=== PATIENT | female | born 1995 | race Hispanic/Latino ===

== ENCOUNTER 2017-11-25 00:56 | Observation (INO) | payer MEDICAID ==
[~2017-11-25] VITALS: Ht 154.9 cm; Wt 53.1 kg
[~2017-11-25 00:56] MED LIST: IBUP-2070 PO; IRON-10 PO
[2017-11-25 01:13] VITALS: BP 107/67
[2017-11-25 01:31] LABS: APPEARANCE,URINE Clear (CLEAR); BILIRUBIN,URINE Negative (NEGATIVE); COLOR,URINE Yellow (YELLOW); GLUCOSE, URINE (UA) Negative (NEGATIVE); KETONES,URINE Trace mg/dL (NEGATIVE); LEUKOCYTE ESTERASE ,URINE Trace (NEGATIVE); NITRATE,URINE Negative (NEGATIVE); OCCULT BLOOD,URINE Negative (NEGATIVE); PH,URINE 7.5 (5.0-8.0); PROTEIN,URINE Negative (NEGATIVE); UROBILINOGEN,URINE 0.2 mg/dL (0.2-1.0)
[2017-11-25 01:44] LABS: BACTERIA,URINE None Seen /HPF (None Seen); RBC,URINE 0-1 /HPF (0-1); WBC,URINE 0-1 /HPF (0-1)
[2017-11-25 01:45] LABS: MUCUS,URINE Few LPF (None Seen); SQUAMOUS EPITHELIAL CELL,UR Few /HPF (0-2)
[2017-11-25] MEDS ORDERED: ALBU0.63 IH (02:17)
[2017-11-25] MEDS ORDERED: PNV11TAB5 PO (02:17)
[2017-11-25] MEDS: LACTATED RINGERS 1000ML IV PRN ×2 (02:21→03:26)
[2017-11-25] MEDS ORDERED: GUAIFENESIN-DM 200/20 MG 10 ML PO PRN (02:45)
[2017-11-25] MEDS ORDERED: ACETAMINOPHEN 325 MG TAB PO PRN (02:45)
== END 2017-11-25 05:15 | disposition home or self-care (01) ==
LOC: EDH 00:56 → LDH 01:13
PROVIDERS: ADMIT Obstetrics & Gynecology; ATTEND Obstetrics & Gynecology
DX: O26.893 Other specified pregnancy related conditions, third trimester (principal); R10.30 Lower abdominal pain, unspecified; R05 Cough; R51 Headache; Z3A.28 28 weeks gestation of pregnancy
CPT/HCPCS: 81001; 87804 ×2; 96360; 96361; 99285; G0378 ×4; J7120

== ENCOUNTER 2018-01-16 16:02 | Observation (INO) | payer MEDICAID ==
[~2018-01-16] VITALS: Ht 154.9 cm; Wt 53.5 kg
[~2018-01-16 16:02] MED LIST changes: +ALBU0.63 IH; +PNV11TAB5 PO
[2018-01-16 16:45] VITALS: BP 110/81
[2018-01-16 17:34] LABS: HEMATOCRIT 25.8 % (36-48); MEAN CORPUSCULAR HEMOGLOBIN 17.9 pg (27.0-33.0); MEAN CORPUSCULAR HGB CONC 31.2 g/dL (32.0-36.0); MEAN CORPUSCULAR VOLUME 57.3 fL (79-99); NUCLEATED RED BLOOD CELLS 0.1 % (0.0-0.19); PLATELET COUNT (AUTO) 242 K/uL (130-400); RED BLOOD CELL COUNT(AUTO) 4.51 MIL/uL (4.00-5.50); RED CELL DISTRIBUTION WIDTH 17.4 % (11.0-15.5)
[2018-01-16] MEDS ORDERED: PNV1TAB.4 PO (18:25)
[2018-01-16 19:45] VITALS: BP 99/57
[2018-01-16 23:59] VITALS: BP 103/67
[2018-01-17 03:30] VITALS: BP 104/57
[2018-01-17 05:41] LABS: HEMATOCRIT 30.7 % (36-48)
[2018-01-17 07:28] VITALS: BP 112/71
[2018-01-17] MEDS ORDERED: DIPH,PERTUSS(ACELL),TET VAC/PF 0.5 ML VIAL IM SCH (09:45)
== END 2018-01-17 11:20 | disposition home or self-care (01) ==
LOC: WSH 16:02
PROVIDERS: ADMIT Obstetrics & Gynecology; ATTEND Obstetrics & Gynecology
DX: O99.013 Anemia complicating pregnancy, third trimester (principal); O26.893 Other specified pregnancy related conditions, third trimester; R10.84 Generalized abdominal pain; O09.893 Supervision of other high risk pregnancies, third trimester; O36.5930 Maternal care for other known or suspected poor fetal growth, third trimester, not applicable or unspecified; Z3A.35 35 weeks gestation of pregnancy; Z23 Encounter for immunization
CPT/HCPCS: 36415 ×2; 36430; 85014; 85018; 85027; 86850; 86900; 86901; 86922; 90471; 90715; G0378 ×20; P9016 ×2

== ENCOUNTER 2018-02-03 17:27 | Observation (INO) | payer MEDICAID ==
[~2018-02-03] VITALS: Ht 157.5 cm; Wt 55.3 kg
[~2018-02-03 17:27] MED LIST changes: +PNV1TAB.4 PO
[2018-02-03 17:58] LABS: APPEARANCE,URINE Clear (CLEAR); BILIRUBIN,URINE Negative (NEGATIVE); COLOR,URINE Yellow (YELLOW); GLUCOSE, URINE (UA) Negative (NEGATIVE); KETONES,URINE Negative (NEGATIVE); LEUKOCYTE ESTERASE ,URINE Moderate (NEGATIVE); NITRATE,URINE Negative (NEGATIVE); OCCULT BLOOD,URINE Negative (NEGATIVE); PH,URINE 6.5 (5.0-8.0); PROTEIN,URINE Negative (NEGATIVE); UROBILINOGEN,URINE 0.2 mg/dL (0.2-1.0)
[2018-02-03 18:20] LABS: BACTERIA,URINE Few /HPF (None Seen); RBC,URINE 0-1 /HPF (0-1); SQUAMOUS EPITHELIAL CELL,UR Few /HPF (0-2)
[2018-02-03] MEDS ORDERED: LACTATED RINGERS 1000ML 1,000 ML IV PRN (18:26)
[2018-02-03] MEDS ORDERED: CEFTRIAXONE 1GM/D5W 50ML 50 ML IV SCH (18:30)
[2018-02-03] MEDS ORDERED: LACTATED RINGERS 1000ML 1,000 ML IV ONE (18:39)
[2018-02-03 18:41] LABS: HEMATOCRIT 32.6 % (36-48); MEAN CORPUSCULAR HEMOGLOBIN 22.5 pg (27.0-33.0); MEAN CORPUSCULAR HGB CONC 33.1 g/dL (32.0-36.0); PLATELET COUNT (AUTO) 177 K/uL (130-400); RED CELL DISTRIBUTION WIDTH 32.9 % (11.0-15.5); WHITE BLOOD COUNT (AUTO) 7.1 K/uL (4.8-10.8)
[2018-02-03] MEDS ORDERED: CEFTRIAXONE SODIUM 1 GM IVP SCH (20:00)
[2018-02-05 06:16] LABS: HEPATITIS Bs ANTIGEN SCREEN P Negative (Negative)
== END 2018-02-04 08:13 | disposition home or self-care (01) ==
LOC: OBSVTOIN 17:27 → INTOOBSV 17:27 → LDH 17:27
PROVIDERS: ADMIT Obstetrics & Gynecology; ATTEND Obstetrics & Gynecology
DX: O62.9 Abnormality of forces of labor, unspecified (principal); Z3A.38 38 weeks gestation of pregnancy
CPT/HCPCS: 36415; 76815; 81001; 85027; 86592; 86850; 86900; 86901; 87340; 96360; 96361; A4218; G0378 ×16; J0696 ×2; J7120

== ENCOUNTER 2018-02-07 08:43 | Inpatient (IN) | payer MEDICAID ==
[2018-02-07] MEDS ORDERED: LACTATED RINGERS 1000ML 1,000 ML IV PRN (09:33)
[2018-02-07] MEDS ORDERED: OXYTOCIN-LR 20 UNITS/1000 ML 1,000 ML IV SCH ×2 (09:45→11:15)
[2018-02-07] MEDS ORDERED: OXYTOCIN 10 USP UNITS/ML 20 UNIT in LACTATED RINGERS 1000ML 1,000 ML IV SCH (09:45)
[2018-02-07 09:53] LABS: HEMATOCRIT 33.5 % (36-48); MEAN CORPUSCULAR HGB CONC 33.2 g/dL (32.0-36.0); MEAN CORPUSCULAR VOLUME 69.3 fL (79-99); PLATELET COUNT (AUTO) 178 K/uL (130-400); RED BLOOD CELL COUNT(AUTO) 4.83 MIL/uL (4.00-5.50); RED CELL DISTRIBUTION WIDTH 33.4 % (11.0-15.5)
[2018-02-07] MEDS ORDERED: OXYTOCIN 10 USP UNITS/ML ONE (10:05)
[2018-02-07] MEDS ORDERED: ACETAMINOPHEN 325 MG TAB PO PRN (11:15)
[2018-02-07] MEDS ORDERED: MEASLES/MUMPS/RUBELLA VACCINE, LIVE 0.5 ML/VIAL SQ PRN (11:15)
[2018-02-07] MEDS ORDERED: DIPH,PERTUSS(ACELL),TET VAC/PF 0.5 ML VIAL IM PRN (11:15)
[2018-02-07 12:44] VITALS: BP 115/76
[2018-02-07] MEDS: IBUPROFEN 600 MG TABLET PO PRN ×2 (13:13→20:22)
[2018-02-07 15:20] VITALS: BP 120/75
[2018-02-07 19:50] VITALS: BP 99/63
[2018-02-07] MEDS: DOCUSATE SODIUM 100 MG CAP PO SCH (20:21)
[2018-02-07] MEDS ORDERED: BENZOCAINE/LANOLIN/ALOE VERA 60 ML AEROSOL TP PRN (21:45)
[2018-02-07 23:47] VITALS: BP 111/77
[2018-02-08 03:49] VITALS: BP 107/68
[2018-02-08 06:16] LABS: HEPATITIS Bs ANTIGEN SCREEN P Negative (Negative)
[2018-02-08] MEDS: IBUPROFEN 600 MG TABLET PO PRN (06:31)
[2018-02-08 06:52] LABS: HEMATOCRIT 34.8 % (36-48); MEAN CORPUSCULAR HEMOGLOBIN 22.5 pg (27.0-33.0); MEAN CORPUSCULAR HGB CONC 32.2 g/dL (32.0-36.0); MEAN CORPUSCULAR VOLUME 69.6 fL (79-99); PLATELET COUNT (AUTO) 230 K/uL (130-400); RED BLOOD CELL COUNT(AUTO) 4.99 MIL/uL (4.00-5.50); WHITE BLOOD COUNT (AUTO) 11.2 K/uL (4.8-10.8)
[2018-02-08 07:19] VITALS: BP 120/78
[2018-02-08] MEDS: DOCUSATE SODIUM 100 MG CAP PO SCH (08:11)
[2018-02-08 11:16] VITALS: BP 108/69
== END 2018-02-08 12:40 | disposition home or self-care (01) | DRG 560 ==
LOC: LDH 08:43 → OBSVTOIN 08:43 → WSH 12:40
PROVIDERS: ADMIT Obstetrics & Gynecology; ATTEND Obstetrics & Gynecology
PROC: 10E0XZZ Delivery of Products of Conception, External Approach (ICD-10-PCS; principal; 2018-02-07)
PROC: 0HQ9XZZ Repair Perineum Skin, External Approach (ICD-10-PCS; 2018-02-07)
PROC: 3E0234Z Introduction of Serum, Toxoid and Vaccine into Muscle, Percutaneous Approach (ICD-10-PCS; 2018-02-07)
PROC: 3E0134Z Introduction of Serum, Toxoid and Vaccine into Subcutaneous Tissue, Percutaneous Approach (ICD-10-PCS; 2018-02-07)
DX: O70.0 First degree perineal laceration during delivery (principal); Z23 Encounter for immunization; Z37.0 Single live birth; Z3A.39 39 weeks gestation of pregnancy
CPT/HCPCS: 36415; 76815; 81001; 85027; 86592; 86850; 86900; 86901; 87340; 96360; 96361; A4218; G0378; J0696; J2590; J7120

== ENCOUNTER 2020-03-11 19:12 | Observation (INO) | payer MEDICAID ==
[~2020-03-11] VITALS: Ht 154.9 cm; Wt 54.4 kg
[2020-03-11] MEDS: DEXAMETHASONE SOD PHOSPHATE 4 MG/ML 1ML VIAL IM SCH
[2020-03-11 20:04] LABS: APPEARANCE,URINE Clear (CLEAR); BILIRUBIN,URINE Negative (NEGATIVE); COLOR,URINE Yellow (YELLOW); GLUCOSE, URINE (UA) Negative (NEGATIVE); KETONES,URINE Trace mg/dL (NEGATIVE); LEUKOCYTE ESTERASE ,URINE Large (NEGATIVE); NITRATE,URINE Negative (NEGATIVE); OCCULT BLOOD,URINE Negative (NEGATIVE); PH,URINE 6.5 (5.0-8.0); PROTEIN,URINE Negative (NEGATIVE)
[2020-03-11 20:11] LABS: AMPHET/METH SCREEN,URINE NEGATIVE (NEGATIVE); BARBITURATE SCREEN, URINE NEGATIVE (NEGATIVE); BENZODIAZEPINES SCREEN,URINE NEGATIVE (NEGATIVE); CANNABINOID SCREEN,URINE NEGATIVE (NEGATIVE); COCAINE SCREEN,URINE NEGATIVE (NEGATIVE); OPIATE SCREEN,URINE NEGATIVE (NEGATIVE); PHENCYCLIDINE SCREEN,URINE NEGATIVE (NEGATIVE)
[2020-03-11 20:23] LABS: BACTERIA,URINE Moderate /HPF (None Seen); MUCUS,URINE Few LPF (None Seen); SQUAMOUS EPITHELIAL CELL,UR Moderate /HPF (0-2)
[2020-03-11] MEDS ORDERED: TERBUTALINE SULFATE VIAL 1MG/ML SQ SCH (20:45)
[2020-03-11] MEDS ORDERED: LACTATED RINGERS 1000ML 1,000 ML IV SCH (20:45)
[2020-03-11] MEDS ORDERED: TERBUTALINE SULFATE VIAL 1MG/ML SQ ONE (20:53)
[2020-03-11] MEDS ORDERED: CEFTRIAXONE SODIUM 1 GM ONE (20:53)
[2020-03-11] MEDS ORDERED: MAGNESIUM SULFATE 1,000 ML IV PRN (21:53)
[2020-03-11] MEDS ORDERED: MAGNESIUM 4GM PREMIX 100ML 100 ML IV SCH (22:00)
[2020-03-11] MEDS ORDERED: MAGNESIUM 4GM PREMIX 100ML 100 ML IV ONE (22:05)
[2020-03-11] MEDS ORDERED: MAGNESIUM SULFATE 1,000 ML IV ONE (22:06)
[2020-03-11] MEDS ORDERED: DEXAMETHASONE SOD PHOSPHATE 4 MG/ML 1ML VIAL ONE (22:06)
[2020-03-11] MEDS ORDERED: CEFTRIAXONE SODIUM 1 GM IVP ONE (22:10)
[2020-03-11 23:16] VITALS: BP 105/71
[2020-03-12] MEDS ORDERED: ACETAMINOPHEN 325 MG TAB PO PRN (03:15)
[2020-03-12] MEDS: DEXAMETHASONE SOD PHOSPHATE 4 MG/ML 1ML VIAL IM SCH (09:45)
[2020-03-12] MEDS ORDERED: ACETAMINOPHEN 325 MG TAB PO SCH (12:00)
== END 2020-03-12 15:25 | disposition home or self-care (01) ==
LOC: EDH 19:12 → LDH 19:13
PROVIDERS: ADMIT Obstetrics & Gynecology; ATTEND Obstetrics & Gynecology
DX: O62.9 Abnormality of forces of labor, unspecified (principal); R10.2 Pelvic and perineal pain; Z3A.34 34 weeks gestation of pregnancy
CPT/HCPCS: 80305; 81001; 87077; 87088; 87186; 96372 ×3; 96374; 99284; A4314; G0378 ×6; J0696; J1100 ×4; J3105; J3475 ×2

== ENCOUNTER 2020-03-30 01:52 | Inpatient (IN) | payer MEDICAID ==
[~2020-03-30] VITALS: Ht 154.9 cm; Wt 56.2 kg
[2020-03-30] MEDS ORDERED: LACTATED RINGERS 1000ML 1,000 ML IV PRN ×2 (02:00→02:47)
[2020-03-30 02:43] LABS: APPEARANCE,URINE Cloudy (CLEAR); BILIRUBIN,URINE Negative (NEGATIVE); COLOR,URINE Yellow (YELLOW); GLUCOSE, URINE (UA) Negative (NEGATIVE); KETONES,URINE Trace mg/dL (NEGATIVE); LEUKOCYTE ESTERASE ,URINE Moderate (NEGATIVE); NITRATE,URINE Negative (NEGATIVE); OCCULT BLOOD,URINE Negative (NEGATIVE); PROTEIN,URINE Trace mg/dL (NEGATIVE)
[2020-03-30 02:55] LABS: BACTERIA,URINE Moderate /HPF (None Seen)
[2020-03-30 02:56] LABS: MUCUS,URINE Moderate LPF (None Seen)
[2020-03-30 02:56] LABS: HEMATOCRIT 33.7 % (36-48); MEAN CORPUSCULAR HEMOGLOBIN 21.4 pg (27.0-33.0); MEAN CORPUSCULAR HGB CONC 31.2 g/dL (32.0-36.0); MEAN CORPUSCULAR VOLUME 68.6 fL (79-99); PLATELET COUNT (AUTO) 246 K/uL (130-400); RED BLOOD CELL COUNT(AUTO) 4.91 MIL/uL (4.00-5.50); RED CELL DISTRIBUTION WIDTH 17.3 % (11.0-15.5)
[2020-03-30 03:00] LABS: AMPHET/METH SCREEN,URINE NEGATIVE (NEGATIVE); BARBITURATE SCREEN, URINE NEGATIVE (NEGATIVE); BENZODIAZEPINES SCREEN,URINE NEGATIVE (NEGATIVE); CANNABINOID SCREEN,URINE NEGATIVE (NEGATIVE); COCAINE SCREEN,URINE NEGATIVE (NEGATIVE); OPIATE SCREEN,URINE NEGATIVE (NEGATIVE); PHENCYCLIDINE SCREEN,URINE NEGATIVE (NEGATIVE)
[2020-03-30 03:27] LABS: PLATELET MORPHOLOGY LARGE PLTS PRESENT
[2020-03-30] MEDS ORDERED: PROMETHAZINE HCL 25 MG/ML 1ML AMPULE IM PRN (03:30)
[2020-03-30] MEDS ORDERED: MEPERIDINE-PF 50 MG/ML SYG IVP PRN (03:30)
[2020-03-30] MEDS ORDERED: BUTORPHANOL TARTRATE 2 MG/ML IVP PRN (08:15)
[2020-03-30] MEDS ORDERED: LACTATED RINGERS 500 ML 500 ML IV PRN (08:15)
[2020-03-30] MEDS ORDERED: OXYTOCIN 10 USP UNITS/ML 20 UNIT in LACTATED RINGERS 1000ML 1,000 ML IV SCH (08:15)
[2020-03-30] MEDS ORDERED: NALOXONE HCL 0.4 MG/1 ML ML IV PRN (08:15)
[2020-03-30] MEDS ORDERED: EPHEDRINE SULFATE 50 MG/ML AMPULE IVP PRN (08:15)
[2020-03-30] MEDS ORDERED: ROPIVACAINE 0.2% 100ML VIAL 100 ML EP SCH (08:15)
[2020-03-30] MEDS ORDERED: OXYTOCIN-LR 20 UNITS/1000 ML 1,000 ML IV ONE ×2 (08:38→13:47)
[2020-03-30] MEDS ORDERED: ACETAMINOPHEN-CODEINE 300/30MG TAB PO PRN (14:00)
[2020-03-30] MEDS ORDERED: BENZOCAINE/LANOLIN/ALOE VERA 60 ML AEROSOL TP PRN (14:00)
[2020-03-30] MEDS ORDERED: WITCH HAZEL 1 PAD TP PRN (14:00)
[2020-03-30] MEDS ORDERED: LANOLIN 30GM OINTMENT TP PRN (14:00)
[2020-03-30] MEDS ORDERED: DIPH,PERTUSS(ACELL),TET VAC/PF 0.5 ML VIAL IM PRN (14:00)
[2020-03-30] MEDS ORDERED: ACETAMINOPHEN 325 MG TAB PO PRN (14:00)
[2020-03-30 14:08] VITALS: BP 135/83
[2020-03-30] MEDS: IBUPROFEN 600 MG TABLET PO PRN (14:30)
[2020-03-30 20:10] VITALS: BP 138/87
[2020-03-30] MEDS: DOCUSATE SODIUM 100 MG CAP PO SCH (20:57)
[2020-03-30 23:21] VITALS: BP 124/80
[2020-03-31 03:47] VITALS: BP 126/72
[2020-03-31] MEDS: IBUPROFEN 600 MG TABLET PO PRN ×2 (04:37→11:27)
[2020-03-31 07:21] LABS: HEPATITIS Bs ANTIGEN SCREEN P Negative (Negative)
[2020-03-31 07:32] VITALS: BP 119/86
[2020-03-31] MEDS: DOCUSATE SODIUM 100 MG CAP PO SCH (08:47)
--- NOTE | 2020-03-31 09:15 | NUR ---
Referral: Positive for THC on 1st visit; negative since then and on admission SW met with pt. who is alert, pleasant and cooperative. Pt. reported that she is single and this is her sixth /delivery. Children are 8y, 7y, 5y, 4y, and 2y; reportedly current with immunizations and currently being cared for by their aunt. Pt. stated that she is no longer in relationship with FOB. Pt. is not employed outside the home and resides with her sister in law Miryam Barbosa whom she refers to as supportive and will assist her at home after discharge. Pt. denied any history of depression or mental illness, denied any history of domestic violence, etoh, or tobacco use. Pt. stated that she used marijuana almost a year ago. SW educated pt. on risks of using marijuana or other illicit substances including the risk of being reported to CPS; pt. verbalized an understanding. There are no smokers in the home. SW provided information on PPD, encouraged pt. to seek assistance from her medical provider if symptoms experienced; pt. verbalized an understanding. All utilities reportedly connected in the home, carseat in place and family provides transportation. Benefits in place include Medicaid, [place] 850/monthly and WIC. Pt. stated that Transportation home at d/c will be provided by cousin Satya Leung. Pt. voiced no SS needs or concerns. Pt. and Baby to be discharged home when medically cleared. Addendum: 03/31/20 at 1006 by KAITLIN LAGUNA SS Amended: Links added.
[2020-03-31 11:28] VITALS: BP 109/67
--- NOTE | 2020-03-31 13:10 | NUR ---
DISCHARGE PT LEFT UNIT VIA WHEELCHAIR, WITH BABY IN ARMS, ACCOMPANIED BY FAMILY MEMBER. DENIED PAIN AND HAD NO COMPLAINTS. BABY STRAPPED IN CAR SEAT. PT AND BABY TRANSPORTED BY PERSONAL VEHICLE.
== END 2020-03-31 13:10 | disposition home or self-care (01) | DRG 560 ==
LOC: EDH 01:52 → OBSVTOIN 01:53 → LDH 01:53 → WSH 14:02
PROVIDERS: ADMIT Obstetrics & Gynecology; ATTEND Obstetrics & Gynecology
PROC: 10E0XZZ Delivery of Products of Conception, External Approach (ICD-10-PCS; principal; 2020-03-30)
PROC: 10907ZC Drainage of Amniotic Fluid, Therapeutic from Products of Conception, Via Natural or Artificial Opening (ICD-10-PCS; 2020-03-30)
PROC: 0KQM0ZZ Repair Perineum Muscle, Open Approach (ICD-10-PCS; 2020-03-30)
PROC: 3E0234Z Introduction of Serum, Toxoid and Vaccine into Muscle, Percutaneous Approach (ICD-10-PCS; 2020-03-30)
DX: O62.3 Precipitate labor (principal); O70.1 Second degree perineal laceration during delivery; Z3A.37 37 weeks gestation of pregnancy; Z37.0 Single live birth; Z23 Encounter for immunization
CPT/HCPCS: 36415; 80305; 81001; 85027; 86592; 86850; 86900; 86901; 87088; 87340; 90715; A4351; G0378; J0595; J2590

== ENCOUNTER 2021-06-07 23:56 | Observation (INO) | payer MEDICAID ==
[~2021-06-07] VITALS: Ht 154.9 cm; Wt 61.3 kg
[2021-06-08] VITALS: BP 121/56
[2021-06-08] MEDS ORDERED: PREN-18 PO (00:19)
[2021-06-08 00:37] LABS: APPEARANCE,URINE Clear (CLEAR); BILIRUBIN,URINE Negative (NEGATIVE); COLOR,URINE Yellow (YELLOW); GLUCOSE, URINE (UA) Negative (NEGATIVE); KETONES,URINE Negative (NEGATIVE); LEUKOCYTE ESTERASE ,URINE Small (NEGATIVE); NITRATE,URINE Negative (NEGATIVE); OCCULT BLOOD,URINE Negative (NEGATIVE); PH,URINE 5.5 (5.0-8.0); PROTEIN,URINE Trace mg/dL (NEGATIVE)
[2021-06-08 00:45] LABS: BACTERIA,URINE Rare /HPF (None Seen); RBC,URINE 0-1 /HPF (0-1); SQUAMOUS EPITHELIAL CELL,UR Few /HPF (0-2)
== END 2021-06-08 01:45 | disposition home or self-care (01) ==
LOC: EDH 23:56 → LDH 06-08 00:09 → UNDOADMOB 06-08 00:09 → LDH 06-08 00:16
PROVIDERS: ADMIT Obstetrics & Gynecology; ATTEND Obstetrics & Gynecology
DX: O62.9 Abnormality of forces of labor, unspecified (principal); O26.893 Other specified pregnancy related conditions, third trimester; R10.9 Unspecified abdominal pain; Z3A.36 36 weeks gestation of pregnancy
CPT/HCPCS: 59025; 81001; 96360; G0378; G0379; J7120

== ENCOUNTER 2023-04-24 16:53 | Emergency (ER) | payer MEDICAID, OTHER ==
[~2023-04-24] VITALS: Ht 154.9 cm; Wt 69.4 kg
[~2023-04-24 16:53] MED LIST changes: -ALBU0.63 IH; +FERR-72 PO; -IBUP-2070 PO; -IRON-10 PO; -PNV11TAB5 PO; -PNV1TAB.4 PO; +PREN-196 PO
[2023-04-24 17:46] VITALS: BP 115/77; PULSE 70; RESP 16
[2023-04-24 18:57] LABS: RAPID GROUP A STREP negative (NEGATIVE)
[2023-04-24 18:59] LABS: SARS-CoV-2, RNA, NAAT NEGATIVE SARS CoV-2 (NEGATIVE)
[2023-04-24 19:07] LABS: INFLUENZA TYPE A Negative For Type A (NEGATIVE); INFLUENZA TYPE B Negative For Type B (NEGATIVE)
[2023-04-24 20:19] LABS: APPEARANCE,URINE CLOUDY (CLEAR); BILIRUBIN,URINE NEGATIVE (NEGATIVE); COLOR,URINE LIGHT-YELLOW (YELLOW); GLUCOSE, URINE (UA) NEGATIVE (NEGATIVE); KETONES,URINE NEGATIVE (NEGATIVE); LEUKOCYTE ESTERASE ,URINE 75 Leu/uL (NEGATIVE); NITRATE,URINE NEGATIVE (NEGATIVE); OCCULT BLOOD,URINE NEGATIVE (NEGATIVE); PROTEIN,URINE 10 mg/dL (NEGATIVE); UROBILINOGEN,URINE 0.2 mg/dL (0.2-1.0)
[2023-04-24 20:21] LABS: ADD UA MICROSCOPIC YES
[2023-04-24 20:23] LABS: BACTERIA,URINE RARE /HPF (None Seen); MUCUS,URINE MOD LPF (None Seen); RBC,URINE 0-1 /HPF (0-1); SQUAMOUS EPITHELIAL CELL,UR FEW /HPF (0-2)
[2023-04-24] MEDS ORDERED: CEPH500B PO (20:44)
== END 2023-04-24 21:06 | disposition home or self-care (01) ==
LOC: EDH 16:53 → EEVIPCON 16:53 → EDH 21:06
DX: N39.0 Urinary tract infection, site not specified (principal); B34.9 Viral infection, unspecified; Z20.822 Contact with and (suspected) exposure to COVID-19; Z79.899 Other long term (current) drug therapy
CPT/HCPCS: 99284; 87635; 87088; 87880; 87804 ×2; 81001; C9803

== ENCOUNTER 2025-06-19 20:13 | Emergency (ER) | payer SELFPAY ==
[~2025-06-19] VITALS: Ht 157.5 cm; Wt 63.5 kg
[~2025-06-19 20:13] MED LIST changes: +CEPH500B PO
--- NOTE | 2025-06-19 20:38 | ERN ---
ED Note History of Present Illness Stated Complaint: CHEST PAIN, FEVER, DIZZINESS, NUMBNESS Chief Complaint: Multiple Complaints Time Seen by MD: 20:33 Dictation: Patient comes in with complaint of subjective fever as well as feeling tired anxious as well as having chest pains and some left lower quadrant abdominal pain as well as nausea. Patient reports symptoms started two nights ago after she got into a vigorous verbal argument with her dad. She started feeling anxious and having these symptoms at night. She was seen yesterday at [facility], [place] and had swabs were negative. She was discharged on Tylenol Motrin dicyclomine cough medicine and Zofran. She states she was not having a cough and so she was not sure why she was put on cough medicine. She states swabs are negative. She was having nausea. Comes in with continued symptoms. She reports that they did not do an EKG yesterday. Denies any coughing no sore throat no diarrhea no dysuria. Status post tubal ligation two years ago. Allergies: Coded Allergies: No Known Drug Allergies (Unverified Allergy, Unknown, 08/02/16) Home Meds Active Scripts Cephalexin Monohydrate (Keflex) 500 Mg Cap, 500 MG PO QID for 7 Days, #28 CAP Prov:LITOKI Az [employer] 04/24/23 Reported Medications Ferrous Sulfate (Ferrous Sulfate) 325 Mg Tablet, 325 MG PO BIDMEALS, TAB 09/06/22 Vit No.124/Iron/FA ( Vitamin Tablet) 1 Each Tablet, 1 EACH PO DAILYDINNER, TAB 09/04/22 Past Medical History Past Medical History: No Pertinent History Surgical History: LMP: May 07, 2025 : 7 Para: 7 Review of System Dictation Ten systems reviewed and negative except as noted in HPI Initial Vital Sign VS Vital Signs Date Time Temp Pulse Resp B/P (MAP) Pulse Ox O2 Delivery O2 Flow Rate FiO2 06/19/25 20:30 99.0 103 20 125/85 100 Room Air 06/19/25 21:42 0 21 Physical Exam Dictation GEN: non toxic, NAD HEENT: atrumatic, PERRL, EOMI, conjunctivae normal NECK: Soft supple nontender Heart RRR, no murmurs Chest: No deformity Lungs: Lungs clear to auscultation Ab: Soft nondistended nontender Back: No midline step-offs. No gross deformity. No CVA tenderness : m/s: Moving all four extremities. No gross deformity Neuro: CN 2-12 intact. Moving all four extremities. Psych: Cooperative Results (Laboratory/Radiology) Laboratory/Radiology Laboratory Tests Test 06/19/25 20:42 06/19/25 20:53 06/19/25 21:12 06/20/25 00:10 Urine Color YELLOW (YELLOW) Urine Appearance CLOUDY (CLEAR) H Urine pH 6.0 (5.0-8.0) Urine Specific [place] 1.028 (1.001-1.031) Urine Protein 30 mg/dL (NEGATIVE) H Urine Glucose (UA) NEGATIVE mg/dL (NEGATIVE) Urine Ketones NEGATIVE mg/dL (NEGATIVE) Urine Occult Blood NEGATIVE (NEGATIVE) Urine Nitrate NEGATIVE (NEGATIVE) Urine Bilirubin NEGATIVE mg/dL (NEGATIVE) Urine Urobilinogen 4.0 mg/dL (0.2-1.0) H Urine Leukocyte Esterase 250 Marek/uL (NEGATIVE) H Urine RBC 2-5 /HPF (0-1) H Urine WBC 6-10 /HPF (0-1) H Urine Squamous Epithelial Cells MOD /HPF (0-2) Urine Bacteria RARE /HPF (None Seen) Urine Hyaline Casts 2-5 /LPF (0-1 /LPF) H Urine HCG, Qualitative NEGATIVE (NEGATIVE) White Blood Count 4.0 K/uL (4.8-10.8) L Red Blood Count 4.93 MIL/uL (4.00-5.50) Hemoglobin 10.1 g/dL (12.0-16.0) L Hematocrit 33.6 % (36-48) L Mean Corpuscular Volume 68.2 fL (79-99) L Mean Corpuscular Hemoglobin 20.5 pg (27.0-33.0) L Mean Corpuscular Hemoglobin Concent 30.1 g/dL (32.0-36.0) L Red Cell Distribution Width 18.3 % (11.0-15.5) H Platelet Count 256 K/uL (130-400) Mean Platelet Volume 9.4 fL (7.5-10.5) Immature Granulocyte % (Auto) 0.5 % (0-1) Neutrophils (%) (Auto) 64.1 % (40.0-77.0) Lymphocytes (%) (Auto) 27.7 % (21.0-51.0) Monocytes (%) (Auto) 7.5 % (3.0-13.0) Eosinophils (%) (Auto) 0.0 % (0.0-8.0) Basophils (%) (Auto) 0.2 % (0.0-5.0) Neutrophils # (Auto) 2.6 K/uL (1.8-7.7) Lymphocytes # (Auto) 1.1 K/uL (1.0-4.8) Monocytes # (Auto) 0.3 K/uL (0.1-1.0) Eosinophils # (Auto) 0.00 K/uL (0.00-0.70) Basophils # (Auto) 0.01 K/uL (0.00-0.20) Absolute Immature Granulocyte (auto 0.02 K/uL (0-1) Nucleated Red Blood Cells 0.0 % (0.0-0.19) Red Blood Cell Morphology See comments D-Dimer Quantitative (PE/DVT) 2548 ng/mL (0-500) *H Sodium Level 135 mmol/L (136-145) L Potassium Level 3.5 mmol/L (3.5-5.1) Chloride Level 100 mmol/L (101-111) L Carbon Dioxide Level 28 mmol/L (21-32) Blood Urea Nitrogen 7 mg/dL (7-18) Creatinine 0.8 mg/dL (0.5-1.0) Glomerular Filtration Rate Calc 101 mL/min (>90) Random Glucose 102 mg/dL (70-105) Total Calcium 8.0 mg/dL (8.5-10.1) L Total Creatine Kinase 55 U/L (21-232) Troponin I High Sensitivity 5 ng/L (4-50) Influenza Type A Antigen Negative For Type A Influenza Type B Antigen Negative For Type B SARS-CoV-2, RNA, NAAT NEGATIVE SARS CoV-2 Lactic Acid Level 1.1 mmol/L (0.8-2.5) Procalcitonin < 0.05 ng/mL (0.05-0.5) L X-RAY Comment: Chest x-ray unremarkable on my read CT Scan Comment: EXAM: CTA Chest with and without IV Contrast for PE Evaluation. CLINICAL HISTORY: Patient presents with chest pain and elevated D-dimer. TECHNIQUE: Axial computed tomography angiography of the chest was performed with and without intravenous contrast using a pulmonary embolism protocol. Multiplanar reconstructed images were reviewed. CONTRAST: Omnipaque 350. COMPARISON: Chest x-ray of the same date. FINDINGS: PULMONARY ARTERIES: No central or segmental pulmonary embolism. Pulmonary arteries are normal in caliber. AORTA: The thoracic aorta is normal in caliber without aneurysm or dissection. LUNGS: Mild bibasilar dependent atelectasis. 2.2 x 1.8 cm solid nodule in the right middle lobe (series 4, image 25). The remaining bilateral lung javier are clear. PLEURAL SPACES: No pleural effusion or pneumothorax. HEART: Heart size within normal limits. Well-defined hypodense lesion in the left cardiophrenic region measuring 1.5 x 1.0 cm, likely representing a pericardial cyst. LYMPH NODES: No significant mediastinal or hilar lymphadenopathy. BONES: No acute fracture or focal osseous lesion. UPPER ABDOMEN: Mild hepatosplenomegaly and fatty liver. IMPRESSION: Negative study for pulmonary embolism. No aortic aneurysm or dissection. Right middle lobe solid nodule; recommended follow-up CT chest after 3 months. Left cardiophrenic hypodense lesion, likely pericardial cyst. Mild hepatosplenomegaly and fatty liver. /[place] ED Course ED Course Orders Procedure Category Date Status Time Vital Signs Per CPOE 06/19/25 Transmitted Routine 20:30 Chest 1vw RAD 06/19/25 Resulted 20:30 12 Lead Ekg Tracing- EKG 06/19/25 Logged Technical 20:30 Oxygen By Nc/Pulse Ox CPOE 06/19/25 Transmitted 20:30 Maintain Iv CPOE 06/19/25 Transmitted 20:30 Iv Insertion CPOE 06/19/25 Transmitted 20:30 Cardiac Monitoring CPOE 06/19/25 Transmitted 20:30 Pulse Oximetry With CPOE 06/19/25 Transmitted Vs And Prn 20:30 Cbc With Differential LAB 06/19/25 Complete 20:30 Activity: Br W/Brp CPOE 06/19/25 Transmitted With Assist 20:30 Creatine Kinase, Total LAB 06/19/25 Complete 20:30 Troponin I High LAB 06/19/25 Complete Sensitivity 20:30 Urinalysis Profile LAB 06/19/25 Complete 20:30 Basic Metabolic Panel LAB 06/19/25 Complete 20:30 Culture Urine PURA 06/19/25 In Process 20:57 ,Urine Test LAB 06/19/25 Complete 21:01 Influenza Type A & B, LAB 06/19/25 Complete Rapid 21:01 Covid Rna Naat LAB 06/19/25 Complete 21:01 D-Dimer LAB 06/19/25 Complete 21:05 Ct Chest Pe Protocol CT 06/19/25 Resulted Wwo Cont 22:23 0.9%Nacl 1000ml (Ns PHA 06/19/25 Complete 1000ml) 22:30 Acetaminophen 500mg PHA 06/19/25 Complete Tab (Tylenol 500mg T 22:30 Ibuprofen 800 Mg Tab PHA 06/19/25 Complete (Motrin) 22:30 Procalcitonin LAB 06/19/25 Complete 22:25 Lactic Acid LAB 06/19/25 Complete 22:25 Iohexol (Omnipaque) PHA 06/19/25 Complete 22:58 Current Medications Medications (Trade) Dose Ordered Sig/Genet Route PRN Reason Start Time Stop Time Status Last Admin Dose Admin Acetaminophen (TYLenol 500MG TAB) 1,000 mg ONCE ONCE PO 06/19/25 22:30 06/19/25 22:31 DC 06/19/25 22:36 Ibuprofen (moTRIN) 800 mg ONCE ONCE PO 06/19/25 22:30 06/19/25 22:31 DC 06/19/25 22:35 Iohexol (Omnipaque) 75 ml STK-MED ONCE IV 06/19/25 22:58 06/19/25 22:58 DC Sodium Chloride 1,905 ml @ 635 mls/hr ONCE ONCE IV 06/19/25 22:30 06/20/25 01:23 DC 06/19/25 22:35 Vital Signs Date Time Temp Pulse Resp B/P (MAP) Pulse Ox O2 Delivery O2 Flow Rate FiO2 06/20/25 00:58 79 18 95/52 97 Room Air* 0 06/19/25 23:51 99.1 96 18 105/62 97 Room Air* 0 06/19/25 22:46 101.7 90 16 126/80 100 Room Air* 0 21 06/19/25 22:36 101.7 06/19/25 22:35 101.7 06/19/25 22:20 101.7 96 16 108/70 100 Room Air* 0 21 06/19/25 21:42 99.0 96 16 120/82 98 Room Air* 0 21 06/19/25 20:30 99.0 103 20 125/85 100 Room Air Medical Decision Making MDM Multiple differentials considered. Chest x-ray labs swabs. EKG performed here. Patient was noted to be tachycardic. We did do a D-dimer which was positive. CT chest shows pulmonary nodule. This will need outpatient follow up. No PE. During her ED stay patient did spike a fever to 101.7. Antipyretics given and fluids. Did add procalcitonin and lactic acid. Chest x-ray clear. Swabs negative. Her urine is a bit contaminated. Patient does not have any dysuria or urinary symptoms. Unlikely the cause. This is likely viral. Procalcitonin negative reassuring as well as lactic acid. Continue supportive care. Antipyretic the rapy. She will plenty of fluids. Return precautions given. Procedure Procedure Dictation: EKG Sinus tachycardia 104 SC 136 QRS of 70 QTC of 376 normal axis QRS complexes narrow normal R-wave progression nonspecific STT wave flattening and changes. Interpretation abnormal DX & DISP Disposition: Discharge Departure Impression: Primary Impression: Fever Additional Impression: Pulmonary nodule, right Condition: Improved Additional Instructions: You have a pulmonary nodule on the right lung. Follow up with your primary care physician or reimaging and re-evaluation in three months. Tylenol ibuprofen as needed for fever Return for any worsening symptoms, inability to tolerate oral intake, weakness, or any other concerns Referrals: SELF,REFERRAL (PCP) KATHIA DUMONT MD Jun 19, 2025 20:38
[2025-06-19 20:52] LABS: APPEARANCE,URINE CLOUDY (CLEAR); GLUCOSE, URINE (UA) NEGATIVE (NEGATIVE); LEUKOCYTE ESTERASE ,URINE 250 Leu/uL (NEGATIVE); NITRATE,URINE NEGATIVE (NEGATIVE); OCCULT BLOOD,URINE NEGATIVE (NEGATIVE)
[2025-06-19 20:57] LABS: ADD UA MICROSCOPIC YES
[2025-06-19 21:01] LABS: SQUAMOUS EPITHELIAL CELL,UR MOD /HPF (0-2)
[2025-06-19 21:03] LABS: IMMATURE GRANULOCYTE ABSOLUTE 0.02 K/uL (0-1); NUCLEATED RED BLOOD CELLS 0.0 % (0.0-0.19); PLATELET COUNT (AUTO) 256 K/uL (130-400); RED BLOOD CELL COUNT(AUTO) 4.93 MIL/uL (4.00-5.50); RED CELL DISTRIBUTION WIDTH 18.3 % (11.0-15.5); WHITE BLOOD COUNT (AUTO) 4.0 K/uL (4.8-10.8)
[2025-06-19 21:14] LABS: CREATININE 0.8 mg/dL (0.5-1.0); GLOMERULAR FILTR. RATE CALC 101.0 mL/min (>90); GLUCOSE,RANDOM 102.0 mg/dL (70-105); SODIUM SERUM 135.0 mmol/L (136-145); UREA NITROGEN, BLOOD 7.0 mg/dL (7-18)
[2025-06-19 21:23] LABS: CREATINE KINASE, TOTAL 55.0 U/L (21-232)
[2025-06-19 21:37] LABS: INFLUENZA TYPE A Negative For Type A (NEGATIVE); INFLUENZA TYPE B Negative For Type B (NEGATIVE)
[2025-06-19 21:52] LABS: SARS-CoV-2, RNA, NAAT NEGATIVE SARS CoV-2 (NEGATIVE)
--- NOTE | 2025-06-19 22:14 | HMCIMG ---
EXAM: CR Chest, 1 View. CLINICAL HISTORY: CHEST PAIN COMPARISON: None provided. FINDINGS: LUNGS: The lungs show no infiltrate or other acute finding. PLEURAL SPACES: No pleural effusion or pneumothorax. MEDIASTINUM: Cardiac size and mediastinal contours within normal limits. BONES: No aggressive appearing osseous lesion seen. IMPRESSION: No acute cardiopulmonary pathology is evident. /[place]
[2025-06-19] MEDS: 0.9%NACL 1000ML 1,905 ML IV ONE (22:35)
[2025-06-19] MEDS ORDERED: IOHEXOL-350 75 ML VIAL IV ONE (22:58)
--- NOTE | 2025-06-19 23:10 | NUR ---
TRANSFERED PT CARE TO [facility] AT THIS TIME
[2025-06-19 23:51] VITALS: TEMP 99.2
--- NOTE | 2025-06-20 00:03 | HMCIMG ---
EXAM: CTA Chest with and without IV Contrast for PE Evaluation. CLINICAL HISTORY: Patient presents with chest pain and elevated D-dimer. TECHNIQUE: Axial computed tomography angiography of the chest was performed with and without intravenous contrast using a pulmonary embolism protocol. Multiplanar reconstructed images were reviewed. CONTRAST: Omnipaque 350. COMPARISON: Chest x-ray of the same date. FINDINGS: PULMONARY ARTERIES: No central or segmental pulmonary embolism. Pulmonary arteries are normal in caliber. AORTA: The thoracic aorta is normal in caliber without aneurysm or dissection. LUNGS: Mild bibasilar dependent atelectasis. 2.2 x 1.8 cm solid nodule in the right middle lobe (series 4, image 25). The remaining bilateral lung javier are clear. PLEURAL SPACES: No pleural effusion or pneumothorax. HEART: Heart size within normal limits. Well-defined hypodense lesion in the left cardiophrenic region measuring 1.5 x 1.0 cm, likely representing a pericardial cyst. LYMPH NODES: No significant mediastinal or hilar lymphadenopathy. BONES: No acute fracture or focal osseous lesion. UPPER ABDOMEN: Mild hepatosplenomegaly and fatty liver. IMPRESSION: Negative study for pulmonary embolism. No aortic aneurysm or dissection. Right middle lobe solid nodule; recommended follow-up CT chest after 3 months. Left cardiophrenic hypodense lesion, likely pericardial cyst. Mild hepatosplenomegaly and fatty liver. /[place]
[2025-06-20 00:13] VITALS: TEMP 99.1
[2025-06-20 00:58] VITALS: BP 95/52; PULSE 79; RESP 18; O2SAT 97
--- NOTE | 2025-06-20 07:34 | EKG ---
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
== END 2025-06-20 01:22 | disposition home or self-care (01) ==
LOC: EDH 20:28
DX: R91.1 Solitary pulmonary nodule (principal); R50.9 Fever, unspecified; R07.89 Other chest pain; R10.32 Left lower quadrant pain; Z20.822 Contact with and (suspected) exposure to COVID-19; Z98.890 Other specified postprocedural states
CPT/HCPCS: 99285; 71270; 71045; 87635; 82550; 84484; 80048; 85025; 85378; 87086; 87804 ×2; 83605; 81001; 81025; 36415 ×2; 93005; 84145; J7030; Q9967